=== PATIENT | male | born 1965 | race Caucasian/White ===

== ENCOUNTER 2020-03-09 03:27 | Emergency (ER) | payer OTHER ==
[~2020-03-09] VITALS: Ht 182.9 cm; Wt 113.4 kg
[2020-03-09] MEDS ORDERED: KEFLEX500 M1 PO (05:31)
[2020-03-09 05:51] VITALS: BP 166/88
== END 2020-03-09 05:42 | disposition home or self-care (01) ==
LOC: ER 03:27
DX: S01.01XA Laceration without foreign body of scalp, initial encounter (principal); W22.8XXA Striking against or struck by other objects, initial encounter; Y93.89 Activity, other specified; Y92.89 Other specified places as the place of occurrence of the external cause; Y99.8 Other external cause status

== ENCOUNTER 2020-08-23 02:32 | Emergency (ER) | payer OTHER ==
[~2020-08-23] VITALS: Ht 180.3 cm; Wt 102.1 kg
[~2020-08-23 02:32] MED LIST: KEFLEX500 M1 PO
[2020-08-23] MEDS ORDERED: OMEPRAZOLE40 MG PO (02:44)
[2020-08-23] MEDS ORDERED: VITAMIN C500 M2 PO (02:45)
[2020-08-23] MEDS ORDERED: MEDROLDOSEPACK PO (02:45)
[2020-08-23] MEDS ORDERED: CLEOCIN HCL300 MG PO (02:46)
[2020-08-23] MEDS ORDERED: ELIMITE60 GM TOP (02:46)
[2020-08-23 03:18] VITALS: BP 162/101
== END 2020-08-23 03:18 | disposition home or self-care (01) ==
LOC: ER 02:32
DX: R21 Rash and other nonspecific skin eruption (principal); K21.9 Gastro-esophageal reflux disease without esophagitis; Z79.899 Other long term (current) drug therapy; Z79.2 Long term (current) use of antibiotics